=== PATIENT | male | born 1995 | race Native Hawaiian/Other Pacific Islander ===

== ENCOUNTER 2019-08-21 22:06 | Emergency (ER) | payer OTHER ==
[~2019-08-21] VITALS: Ht 182.9 cm; Wt 86.6 kg
[2019-08-21 22:56] LABS: POTASSIUM 3.5 mmol/L (3.6-5.2); SODIUM 136 mmol/L (136-145)
[2019-08-21 22:57] LABS: PLATELET COUNT 270 K/uL (142-355)
[2019-08-21 23:32] VITALS: BP 129/94; TEMP 98
[2019-08-21 23:38] LABS: PARTIAL THROMBOPLASTIN TIME 26.5 SECONDS (24.5-33.6)
== END 2019-08-21 23:32 | disposition home or self-care (01) ==
LOC: ED 22:06
PROVIDERS: Hospitalist
DX: R00.2 Palpitations (principal); W86.0XXA Exposure to domestic wiring and appliances, initial encounter; Y92.098 Other place in other non-institutional residence as the place of occurrence of the external cause
CPT/HCPCS: 80053; 82550; 83880; 84484; 85027; 85610; 85730; 93005; 99283

== ENCOUNTER 2020-06-28 13:10 | Outpatient (CLI) | payer OTHER | END 2020-06-28 20:55 | disposition home or self-care (01) | LOC: RAD 13:10 | PROVIDERS: ATTEND Nurse Practitioner Family | DX: M54.6 Pain in thoracic spine (principal); M54.5 Low back pain; G62.9 Polyneuropathy, unspecified ==